=== PATIENT | male | born 1995 | race Caucasian/White ===

== ENCOUNTER 2016-06-25 23:05 | Emergency (ER) | payer OTHER ==
--- NOTE | 2016-06-26 00:20 | ER Document Report ---
ED General - General Chief Complaint: Overdose Stated Complaint: POSSIBLE OVERDOSE Notes: Patient is 21-year-old male who presents after taking 12 mg of prazosin prior to arrival. States he did this to make his think that he was going to kill himself after he caught her cheating on him. States that he knew this dose would not hurt him and he had no suicidal intention. States he only took it in front of his so that he could have revenge on her. States his friends brought him here even though he did not want to come here. Denies any history of similar episodes in the past. He denies any additional ingestions tonight. Denies any vomiting, diarrhea, chest pain or shortness of breath and weakness or numbness. He is requesting to leave at time of my assessment. - Related Data Allergies/Adverse Reactions: No Known Allergies Allergy (Unverified 06/25/16 23:15) Past Medical History - General Information source: Patient - Social History Smoking Status: Never Smoker Frequency of alcohol use: Occasional Drug Abuse: None Lives with: Spouse/Significant other Family History: Reviewed & Not Pertinent Renal/ Medical History: Denies: Hx Peritoneal Dialysis Review of Systems - Review of Systems Notes: Constitutional: Negative for fever. HENT: Negative for sore throat. Eyes: Negative for visual changes. Cardiovascular: Negative for chest pain. Respiratory: Negative for shortness of breath. Gastrointestinal: Negative for abdominal pain, vomiting or diarrhea. Genitourinary: Negative for dysuria. Musculoskeletal: Negative for back pain. Skin: Negative for rash. Neurological: Negative for headaches, weakness or numbness. 10 point ROS negative except as marked above and in HPI. Physical Exam - Vital signs Vitals: Temp Pulse Resp BP Pulse Ox 98.0 F 84 16 126/81 H 99 06/25/16 23:08 06/25/16 23:08 06/25/16 23:08 06/25/16 23:08 06/25/16 23:08 Interpretation: Normal Notes: PHYSICAL EXAMINATION: GENERAL: Well-appearing, well-nourished and in no acute distress. HEAD: Atraumatic, normocephalic. EYES: Pupils equal round and reactive to light, extraocular movements intact, sclera anicteric, conjunctiva are normal. ENT: nares patent, oropharynx clear without exudates. Moist mucous membranes. NECK: Normal range of motion, supple without lymphadenopathy LUNGS: Breath sounds clear to auscultation bilaterally and equal. No wheezes rales or rhonchi. HEART: Regular rate and rhythm without murmurs ABDOMEN: Soft, nontender, normoactive bowel sounds. No guarding, no rebound. No masses appreciated. EXTREMITIES: Normal range of motion, no pitting or edema. No cyanosis. NEUROLOGICAL: No focal neurological deficits. Moves all extremities spontaneously and on command. PSYCH: Normal mood, normal affect. SKIN: Warm, Dry, normal turgor, no rashes or lesions noted. Course - Re-evaluation Re-evalutation: 06/26/16 00:17 Patient presents after taking a total of 12 mg of prazosin 2 hours prior to arrival. He denies any additional ingestions. He states that he did this as an attention seeking maneuver to make his think he was going to hurt himself after he caught her cheating on him. He adamantly denies that there is any true suicidal intent and states he knew that this dose of medication would not actually hurt him. He denies any additional coingestions. He denies any suicidal homicidal ideation. He has a clear thought process, makes appropriate eye contact. I spent 15 minutes with the patient going over any potential concern for true suicidal intent in this action and he is clear and adamant that this was not his intention tonight and that he was only doing this to punish his are cheating on him. EKG is unremarkable without any QT prolongation, peak T waves or widened QRS complexes. Poison control was contacted and recommended a Tylenol level in addition to an EKG. The patient did refuse blood work stating he just wanted to leave at this time ago status friend's house. Patient does have capacity and does not meet IVC criteria based on the history provided at this time. He does deny any Tylenol ingestion and given that he otherwise has a clear thought process I believe he has capacity and the right to refuse this testing at this time. Will discharge with recommendations to never do something like this again as well strict return precautions. - Vital Signs Vital signs: Temp Pulse Resp BP Pulse Ox 97.5 F 109 H 18 139/87 H 98 06/26/16 00:20 06/26/16 00:20 06/26/16 00:20 06/26/16 00:20 06/26/16 00:20 Discharge - Discharge Clinical Impression: Medication overdose Qualifiers: Encounter type: initial encounter Injury intent: undetermined intent Qualified Code(s): T50.904A - Poisoning by unspecified drugs, medicaments and biological substances, undetermined, initial encounter Condition: Good Disposition: HOME, SELF-CARE Additional Instructions: Please don't ever taken medicines as an act of revenge against somebody else. You could seriously hurt yourself by doing something like this even if you don' t mean to do so. Please return if you develop thoughts of wanting to harm yourself, hurt others, take excessive medications, began hearing voices or seeing things, or have any other symptoms that are concerning to you.
[2016-06-26 00:48] VITALS: BP 139/87
--- NOTE | 2016-06-27 12:54 | EKG REPORT ---
SEVERITY:- BORDERLINE ECG - SINUS RHYTHM PROBABLE LEFT ATRIAL ABNORMALITY : Confirmed by: Radha Paul MD 27-Jun-2016 12:53:06
== END 2016-06-26 00:20 | disposition home or self-care (01) ==
LOC: ER 23:05
DX: T44.6X Poisoning by, adverse effect of and underdosing of alpha-adrenoreceptor antagonists (principal); Z63.0 Problems in relationship with spouse or partner
CPT/HCPCS: 93005; 93010; 99284

== ENCOUNTER 2017-10-05 10:01 | Emergency (ER) | payer SELFPAY ==
[2017-10-05] MEDS ORDERED: ONDANSETRON 4 MG TAB.RAPDIS PO ONE (10:33)
--- NOTE | 2017-10-05 10:33 | ER Document Report ---
ED Medical Screen (RME) - General Chief Complaint: Abdominal Pain Stated Complaint: ABD PAIN Time Seen by Provider: 10/05/17 10:29 Mode of Arrival: Ambulatory Information source: Patient - HPI Notes: 10/05/17 10:31 I have greeted and performed a rapid initial assessment of this patient. A comprehensive ED assessment and evaluation of the patient, analysis of test results and completion of the medical decision making process will be conducted by additional ED providers. 22-year-old male presents emergency department with a two-month history of abdominal pain. Patient states that he was seen in [place] and worked up extensively for his abdominal pain. He was diagnosed with colitis. Patient states that he was prescribed medication but he is not able to afford it. Patient describes the pain as a sharp and stabbing sensation located diffusely without any radiation. Patient states that food worsens the pain. No alleviating factors. Patient has had associated nausea, vomiting, rectal pain, hematochezia, hematemesis. PHYSICAL EXAMINATION: GENERAL: Well-appearing, well-nourished and in no acute distress. HEAD: Atraumatic, normocephalic. EYES: Pupils equal round extraocular movements intact, conjunctiva are normal. ENT: Nares patent NECK: Normal range of motion LUNGS: No respiratory distress Musculoskeletal: Normal range of motion NEUROLOGICAL: Normal speech, normal gait. PSYCH: Normal mood, normal affect. SKIN: Warm, Dry, normal turgor, no rashes or lesions noted. - Related Data Allergies/Adverse Reactions: No Known Allergies Allergy (Unverified 06/25/16 23:15) Past Medical History Renal/ Medical History: Denies: Hx Peritoneal Dialysis - Immunizations Hx Diphtheria, Pertussis, Tetanus Vaccination: No Physical Exam - Vital signs Vitals: Temp Pulse Resp BP Pulse Ox 97.5 F 64 16 115/73 98 10/05/17 10:06 10/05/17 10:06 10/05/17 10:06 10/05/17 10:06 10/05/17 10:06 Course - Vital Signs Vital signs: Temp Pulse Resp BP Pulse Ox 97.5 F 64 16 115/73 98 10/05/17 10:06 10/05/17 10:06 10/05/17 10:06 10/05/17 10:06 10/05/17 10:06
[2017-10-05 11:13] LABS: ABSOLUTE BASOPHILS # (AUTO) 0.1 10^3/uL (0.0-0.2); ABSOLUTE EOSINOPHILS # (AUTO) 0.3 10^3/uL (0.0-0.6); ABSOLUTE LYMPHOCYTES (AUTO) 3.3 10^3/uL (0.5-4.7); ABSOLUTE MONOCYTES (AUTO) 0.7 10^3/uL (0.1-1.4); ABSOLUTE NEUT (AUTO) 5.5 10^3/uL (1.7-8.2); BASOPHILS % (AUTO) 0.9 % (0-2); EOSINOPHILS % (AUTO) 3.5 % (0-6); HEMOGLOBIN 14.9 g/dL (13.5-17.0); LYMPHOCYTES % (AUTO) 33.2 % (13-45); MEAN CORPUSCULAR HEMOGLOBIN 30.1 pg (27.0-33.4); MEAN CORPUSCULAR HGB CONC 34.7 g/dL (32.0-36.0); MEAN CORPUSCULAR VOLUME 87 fl (80-97); MONOCYTES % (AUTO) 7.4 % (3-13); PLATELET COUNT 239 10^3/uL (150-450); RED BLOOD COUNT 4.95 10^6/uL (4.35-5.55); RED CELL DISTRIBUTION WIDTH 12.8 % (11.5-14.0); TOTAL CELLS COUNTED % (AUTO) 100 %; WHITE BLOOD COUNT 9.9 10^3/uL (4.0-10.5)
--- NOTE | 2017-10-05 11:14 | RADIOLOGY REPORT (SQ) ---
EXAM DESCRIPTION: ACUTE ABDOMEN SERIES COMPLETED DATE/TIME: 10/05/2017 11:05 am REASON FOR STUDY: diffuse abdominal pain COMPARISON: None. NUMBER OF VIEWS: Three views. TECHNIQUE: Frontal chest, supine abdomen and upright/decubitus abdomen radiographic images acquired. LIMITATIONS: None. FINDINGS: CHEST: Lungs clear of infiltrates. FREE AIR: None. No abnormal gas collections. BOWEL GAS PATTERN: Nonobstructive pattern. No dilated loops or air fluid levels. CALCIFICATIONS: No suspicious calcifications. HARDWARE: None in the abdomen. SOFT TISSUES: No gross mass or suggestion of organomegaly. BONES: No acute fracture. No worrisome bone lesions. OTHER: No other significant finding. IMPRESSION: NO RADIOGRAPHIC EVIDENCE FOR ACUTE ABDOMINAL DISEASE. TECHNICAL DOCUMENTATION: JOB ID: [id number] [employer]- All Rights Reserved Reading location - IP/workstation name: [email or web address]
[2017-10-05 11:21] LABS: APPEARANCE,URINE CLEAR; BILIRUBIN,URINE NEGATIVE (NEGATIVE); COLOR,URINE YELLOW; GLUCOSE, URINE NEGATIVE (NEGATIVE); KETONES,URINE TRACE mg/dL (NEGATIVE); LEUKOCYTE ESTERASE,URINE NEGATIVE (NEGATIVE); NITRITE,URINE NEGATIVE (NEGATIVE); PROTEIN,URINE NEGATIVE (NEGATIVE); URINE SPECIFIC GRAVITY 1.032
[2017-10-05 11:34] LABS: ALANINE AMINOTRANSFERASE 27 U/L (21-72); ALBUMIN 4.7 g/dL (3.5-5.0); ALKALINE PHOSPHATASE 65 U/L (38-126); ANION GAP 13 (5-19); ASPARTATE AMINO TRANSFERASE 27 U/L (17-59); BILIRUBIN,DIRECT 0.3 mg/dL (0.0-0.4); BLOOD UREA NITROGEN 21 mg/dL (7-20); CALCIUM 9.4 mg/dL (8.4-10.2); CARBON DIOXIDE 28 mmol/L (22-30); CHLORIDE 105 mmol/L (98-107); GLUCOSE 75 mg/dL (75-110); LIPASE 68.4 U/L (23-300); POTASSIUM 4.2 mmol/L (3.6-5.0); SODIUM 145.6 mmol/L (137-145); TOTAL PROTEIN 7.4 g/dL (6.3-8.2)
--- NOTE | 2017-10-05 11:54 | ER Document Report ---
ED GI/ - General Chief Complaint: Abdominal Pain Stated Complaint: ABD PAIN Time Seen by Provider: 10/05/17 10:29 Mode of Arrival: Ambulatory Information source: Patient Notes: Patient is a 22-year-old male who presents to the ER today for abdominal pain, nausea. Patient states that he has been diagnosed with colitis in the past and is out of his medication, hydrocodone which she has been prescribed in the past for his colitis. Patient states he has never seen a logistical engineer about his colitis, was just diagnosed in the emergency department a few years ago. Patient states that over the past couple of months he has had diarrhea daily sometimes with some blood in it, and nausea without vomiting. Patient states is abdominal pain is "all over." Patient was told he needed a colonoscopy, however he states he is scared of that. He denies any blood in his diarrhea anytime recently. - Related Data Allergies/Adverse Reactions: No Known Allergies Allergy (Unverified 10/05/17 10:59) Past Medical History - General Information source: Patient - Social History Smoking Status: Current Every Day Smoker Chew tobacco use (# tins/day): No Frequency of alcohol use: None Drug Abuse: Marijuana Family History: Reviewed & Not Pertinent Patient has suicidal ideation: No Patient has homicidal ideation: No Renal/ Medical History: Denies: Hx Peritoneal Dialysis - Immunizations Hx Diphtheria, Pertussis, Tetanus Vaccination: No Review of Systems - Review of Systems Constitutional: No symptoms reported EENT: No symptoms reported Cardiovascular: No symptoms reported Respiratory: No symptoms reported Gastrointestinal: See HPI Genitourinary: No symptoms reported Male Genitourinary: No symptoms reported Musculoskeletal: No symptoms reported Skin: No symptoms reported Hematologic/Lymphatic: No symptoms reported Neurological/Psychological: No symptoms reported Physical Exam - Vital signs Vitals: Temp Pulse Resp BP Pulse Ox 97.5 F 64 16 115/73 98 10/05/17 10:06 10/05/17 10:06 10/05/17 10:06 10/05/17 10:06 10/05/17 10:06 - Notes Notes: PHYSICAL EXAMINATION: GENERAL: Well-appearing and in no acute distress. HEAD: Atraumatic, normocephalic. EYES: Pupils equal round and reactive to light, extraocular movements intact, sclera anicteric, conjunctiva are normal. NECK: Normal range of motion, supple without lymphadenopathy LUNGS: CTAB and equal. No wheezes rales or rhonchi. HEART: Regular rate and rhythm without murmurs ABDOMEN: Soft, no tenderness. No guarding, no rebound BACK: no vertebral tenderness, normal ROM GI/: no CVA tenderness EXTREMITIES: Normal range of motion, no pitting edema. No cyanosis. NEUROLOGICAL: Cranial nerves grossly intact. Normal sensory/motor exams. PSYCH: Normal mood, normal affect. SKIN: Warm, Dry, normal turgor, no rashes or lesions noted Course - Re-evaluation Re-evalutation: 10/05/17 17:56 Patient is well-appearing, smiling, nontender abdomen, lab work is unremarkable today and KUB shows no acute pathology. No obstructive bowel gas pattern. Patient be placed on Bentyl and given Zofran for his nausea. I highly encouraged him to see a logistical engineer as he may be suffering from ulcerative colitis or Crohn's disease and not know it. I spent at least 5 minutes educating patient on colonoscopies and why they are important in this type of disease. On discharge patient is adamant that he is going to call the logistical engineer. - Vital Signs Vital signs: Temp Pulse Resp BP Pulse Ox 98 F 53 L 16 107/60 100 10/05/17 12:03 10/05/17 12:03 10/05/17 12:03 10/05/17 12:03 10/05/17 12:03 - Laboratory Result Diagrams: 10/05/17 10:43 10/05/17 10:43 Laboratory results interpreted by me: 10/05/17 10/05/17 10:43 10:43 Sodium 145.6 H BUN 21 H Urine Ketones TRACE H Urine Urobilinogen 2.0 H Discharge - Discharge Clinical Impression: Abdominal pain Qualifiers: Abdominal location: generalized Qualified Code(s): R10.84 - Generalized abdominal pain Condition: Stable Disposition: HOME, SELF-CARE Additional Instructions: Return immediately for any new or worsening symptoms. Follow up with primary care provider, call tomorrow to make followup appointment. Prescriptions: Dicyclomine HCl [Bentyl 20 mg Tablet] 20 mg PO BID #30 tablet Ondansetron [Zofran Odt 4 mg Tablet] 1 - 2 tab PO Q4H PRN #15 tab.rapdis PRN Reason: For Nausea/Vomiting Forms: Return to Work Referrals: BRENDON WISDOM MD [ACTIVE STAFF] - Follow up as needed
[2017-10-05 12:04] VITALS: BP 107/60
== END 2017-10-05 12:04 | disposition home or self-care (01) ==
LOC: ER 10:01
DX: R10.84 Generalized abdominal pain (principal); R11.0 Nausea; F17.200 Nicotine dependence, unspecified, uncomplicated
CPT/HCPCS: 99284; 36415; 83690; 85025; 80053; 81001; 74022; S0119

== ENCOUNTER 2017-11-16 09:55 | Emergency (ER) | payer SELFPAY ==
[2017-11-16 10:01] VITALS: BP 131/68
[2017-11-16] MEDS ORDERED: AZITHROMYCIN 250 MG TABLET PO ONE (10:11)
--- NOTE | 2017-11-16 10:20 | ER Document Report ---
ED General - General Chief Complaint: Sinus Congestion Stated Complaint: COLD Time Seen by Provider: 11/16/17 10:10 TRAVEL OUTSIDE OF THE [place] IN LAST 30 DAYS: No - HPI Patient complains to provider of: Sinus congestion Notes: Sinus congestion ongoing for the last 5 days. Patient is here with significant other with similar symptoms patient denies any recent travel denies any fevers chills states pressure behind his eyes and in his ears. Patient states taking [id number] medications with no relief. Patient does smoke. Denies any recent antibiotics resting comfortably upon my evaluation. - Related Data Allergies/Adverse Reactions: No Known Allergies Allergy (Verified 11/16/17 09:56) Past Medical History - Social History Smoking Status: Current Every Day Smoker Family History: Reviewed & Not Pertinent Patient has suicidal ideation: No Patient has homicidal ideation: No Renal/ Medical History: Denies: Hx Peritoneal Dialysis - Immunizations Hx Diphtheria, Pertussis, Tetanus Vaccination: No Review of Systems - Review of Systems Constitutional: Weakness - Sinus congestion ear congestion EENT: No symptoms reported Cardiovascular: No symptoms reported Respiratory: No symptoms reported Gastrointestinal: No symptoms reported Genitourinary: No symptoms reported Male Genitourinary: No symptoms reported Musculoskeletal: No symptoms reported Skin: No symptoms reported Hematologic/Lymphatic: No symptoms reported Neurological/Psychological: No symptoms reported Physical Exam - Vital signs Vitals: Temp Pulse Resp BP Pulse Ox 97.7 F 67 18 131/68 H 100 11/16/17 09:59 11/16/17 09:59 11/16/17 09:59 11/16/17 09:59 11/16/17 09:59 Interpretation: Normal - General General appearance: Appears well, Alert - HEENT Head: Normocephalic, Atraumatic Eyes: Normal Conjunctiva: Normal Cornea: Normal Extraocular movements intact: Yes Eyelashes: Normal Pupils: PERRL Anterior chamber: Normal Fundascopic: Normal Ears: Normal External canal: Normal Tympanic membrane: Normal Hearing loss: Left Sinus: Tenderness - Frontal Nasal: Normal Mouth/Lips: Normal Pharynx: Normal Neck: Normal - Respiratory Respiratory status: No respiratory distress Chest status: Nontender Breath sounds: Normal Chest palpation: Normal - Cardiovascular Rhythm: Regular Heart sounds: Normal auscultation Murmur: No - Abdominal Inspection: Normal Distension: No distension Bowel sounds: Normal Tenderness: Nontender Organomegaly: No organomegaly - Back Back: Normal, Nontender - Extremities General upper extremity: Normal inspection, Nontender, Normal color, Normal ROM , Normal temperature General lower extremity: Normal inspection, Nontender, Normal color, Normal ROM , Normal temperature, Normal weight bearing. No: Liliane's sign - Neurological Neuro grossly intact: Yes Cognition: Normal Orientation: AAOx4 [place] Coma Scale Eye Opening: Spontaneous [place] Coma Scale Verbal: Oriented [place] Coma Scale Motor: Obeys Commands Tara Coma Scale Total: 15 Speech: Normal Motor strength normal: LUE, RUE, LLE, RLE Sensory: Normal - Psychological Associated symptoms: Normal affect, Normal mood - Skin Skin Temperature: Warm Skin Moisture: Dry Skin Color: Normal Course - Re-evaluation Re-evalutation: 11/16/17 10:30 Patient's presentation is consistent with sinus infection. Patient was educated not use Tylenol and Motrin for pain control [id number] Zyrtec for symptoms. Will start patient on azithromycin S patient's current symptoms and ongoing for approximately 5 days. Patient was encouraged to stop smoking. Patient discharged home patient is to drink plenty water stay hydrated - Vital Signs Vital signs: Temp Pulse Resp BP Pulse Ox 97.7 F 67 18 131/68 H 100 11/16/17 09:59 11/16/17 09:59 11/16/17 09:59 11/16/17 09:59 11/16/17 09:59 Discharge - Discharge Clinical Impression: Sinusitis Qualifiers: Sinusitis location: frontal Chronicity: unspecified Qualified Code(s): J32.1 - Chronic frontal sinusitis Instructions: Sinusitis ([facility]), Stop Smoking ([facility]) Additional Instructions: Physical examination is consistent with a sinus infection. Would recommend taking an [id number] antihistamine such as Zyrtec or Claritin. I would also recommend drinking plenty of water. You must stop smoking while taking the antibiotics as that continue smoking will aid in resolution of her symptoms. I will also recommend taking honey for coughing. Return to the ER symptoms worsen I would recommend taking Motrin and Tylenol for pain please make sure to drink plenty water to stay hydrated. Prescriptions: Ibuprofen [Motrin 600 mg Tablet] 600 mg PO Q8HP PRN #21 tablet PRN Reason: Azithromycin [Zithromax] 250 mg PO DAILY #4 tablet Cetirizine HCl [Zyrtec 10 mg Tablet] 1 tab PO DAILY #30 tablet Forms: Return to Work
== END 2017-11-16 10:30 | disposition home or self-care (01) ==
LOC: ER 09:55
DX: J32.1 Chronic frontal sinusitis (principal); F17.200 Nicotine dependence, unspecified, uncomplicated
CPT/HCPCS: 99283

== ENCOUNTER 2018-10-01 11:55 | Emergency (ER) | payer SELFPAY ==
[2018-10-01 12:12] VITALS: BP 117/63
[2018-10-01] MEDS ORDERED: PREDNISONE 20 MG TABLET PO ONE (12:40)
--- NOTE | 2018-10-01 12:43 | ER Document Report ---
HPI - HPI Patient complains to provider of: skin rash Time Seen by Provider: 10/01/18 12:36 Onset: Other - 2 days Onset/Duration: Worse Quality of pain: Burning Pain Level: 4 Context: Patient presents complaining of skin rash for the past 2 days. 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 Associated Symptoms: denies: Fever Exacerbated by: Denies Relieved by: Denies Similar symptoms previously: Yes Recently seen / treated by doctor: No - ROS ROS below otherwise negative: Yes Systems Reviewed and Negative: Yes All other systems reviewed and negative - CONSTITUTIONAL Constitutional: DENIES: Fever - NEURO Neurology: DENIES: Headache - GASTROINTESTINAL Gastrointestinal: DENIES: Nausea, Patient vomiting - DERM Skin Color: Erythema Skin Problems: Rash Past Medical History - General Information source: Patient - Social History Smoking Status: Current Every Day Smoker Smoking Education Provided: Yes Frequency of alcohol use: None Drug Abuse: None 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 IN LAST 30 DAYS: No - HEENT HEENT: Atraumatic, Normocephalic - NECK Neck: Normal Inspection - RESPIRATORY Respiratory: Breath Sounds Normal, No Respiratory Distress - CARDIOVASCULAR Cardiovascular: Regular Rhythm, No Murmur, Bradycardia - BACK Back: Normal Inspection - MUSCULOSKELETAL/EXTREMETIES Musculoskeletal/Extremeties: MAEW - NEURO Level of Consciousness: Awake, Alert, Appropriate Motor/Sensory: No Motor Deficit - DERM Integumentary: Warm, Dry, Rash - Erythematous maculopapular rash to exposed area of face and upper extremities Course - Re-evaluation Re-evalutation: 10/01/18 12:41 Patient with a skin rash consistent with reported history of working with poison shayy. - Vital Signs Vital signs: Temp Pulse Resp BP Pulse Ox 98.1 F 54 L 16 117/63 100 10/01/18 12:11 10/01/18 12:11 10/01/18 12:11 10/01/18 12:11 10/01/18 12:11 Discharge - Discharge Clinical Impression: Contact dermatitis Qualifiers: Contact dermatitis type: unspecified Contact dermatitis trigger: non-food plants Qualified Code(s): L25.5 - Unspecified contact dermatitis due to plants, except food Condition: Stable Disposition: HOME, SELF-CARE Instructions: Poison Shayy ([facility]), Steroid Medication Additional Instructions: Return immediately for any new or worsening symptoms Followup with your primary care provider, call tomorrow to make a followup appointment Use technu or Zanfel cream after exposure to wash the oils of the plan of your skin. Prescriptions: Hydroxyzine HCl [Atarax 25 mg Tablet] 1 - 2 tab PO QID PRN #20 tablet PRN Reason: Prednisone [Deltasone 5 mg Tablet] 5 mg PO ASDIR PRN #100 tablet PRN Reason: Referrals: [facility] [Provider Group] - Follow up as needed
== END 2018-10-01 12:54 | disposition home or self-care (01) ==
LOC: ER 11:55
DX: L25.5 Unspecified contact dermatitis due to plants, except food (principal); F17.200 Nicotine dependence, unspecified, uncomplicated
CPT/HCPCS: 99282; J7512